=== PATIENT | female | born 1985 | race Asian ===

== ENCOUNTER 2016-07-03 22:12 | Inpatient (IN) | payer BC ==
[2016-07-03] MEDS ORDERED: Lidocaine 1% 50 ML MDV INJECT ONE (23:00)
[2016-07-03] MEDS ORDERED: Nalbuphine 20 MG/1 ML Amp IVPUSH PRN (23:00)
[2016-07-03] MEDS ORDERED: Oxytocin/Lactated Ringers 10 UNIT/1,000 ML BAG IV SCH (23:00)
[2016-07-03] MEDS ORDERED: Sodium Chloride 0.9% 10 ML Syringe FLUSH PRN (23:00)
[2016-07-03] MEDS: Lactated Ringers 1,000 ML IV SCH (23:44)
[2016-07-03] MEDS: Penicillin G Potassium 5 MILLUNITS in Sodium Chloride 0.9% 100 ML IV SCH (23:47)
[2016-07-04] MEDS: Penicillin G Potassium 2.5 MILLUNITS in Sodium Chloride 0.9% 100 ML IV SCH ×4 (02:26→12:02)
[2016-07-04] MEDS ORDERED: diphenhydrAMINE 50 MG/ML SDV IVPUSH PRN (04:08)
[2016-07-04] MEDS ORDERED: ePHEDrine 50 MG/ML SDV IVPUSH PRN (04:08)
[2016-07-04] MEDS ORDERED: fentaNYL 100 MCG/2 ML SDV EPIDUR PRN (04:08)
[2016-07-04] MEDS ORDERED: Ondansetron 4 MG/2 ML SDV IVPUSH PRN (04:08)
--- NOTE | 2016-07-04 04:12 | PCM.PREANE ---
Preanesthetic Assessment - Anesthesia/Transfusion/Family Hx Anesthesia History: No Prior Anesthesia Type of Anesthesia Reaction: Unknown Family History of Anesthesia Reaction: No Transfusion History: No Prior Transfusion(s) Intubation History: Unknown - Review of Systems General: No Symptoms Pulmonary: No Symptoms Cardiovascular: No Symptoms Gastrointestinal: No symptoms Neurological: No Symptoms Other: Reports: None - Physical Assessment O2 Sat by Pulse Oximetry: 98 Respiratory Rate: 16 Vital Signs: Last Vital Signs Temp 36.8 C 07/03/16 23:00 Pulse 81 07/03/16 23:00 Resp 16 07/03/16 23:00 BP 110/73 07/03/16 23:00 Pulse Ox 98 07/03/16 23:00 Height: 1.5 m Weight: 60.016 kg ASA Class: 2 Mental Status: Alert & Oriented x3 Dentition: Reports: Normal Dentition Thyro-Mental Finger Breadths: 3 Mouth Opening Finger Breadths: 3 ROM/Head Extension: Full Lungs: Clear to auscultation, Normal respiratory effort Cardiovascular: Regular Rate, Regular Rhythm - Lab Values: Laboratory Last Values WBC 12.24 K/mm3 (3.98-10.04) H 07/03/16 23:15 RBC 3.97 M/mm3 (3.98-5.22) L 07/03/16 23:15 Hgb 11.5 gm/L (11.2-15.7) 07/03/16 23:15 Hct 35.0 % (34.1-44.9) 07/03/16 23:15 MCV 88.2 fl (79.4-94.8) 07/03/16 23:15 MCH 29.0 pg (25.6-32.2) 07/03/16 23:15 MCHC 32.9 g/dl (32.2-35.5) 07/03/16 23:15 RDW Std Deviation 44.5 fL (36.4-46.3) 07/03/16 23:15 Plt Count 219 K/mm3 (182-369) 07/03/16 23:15 MPV 10.0 fl (9.4-12.3) 07/03/16 23:15 Blood Type O POSITIVE 07/03/16 23:15 Gel Antibody Screen Negative 07/03/16 23:15 - Allergies Allergies/Adverse Reactions: Allergies Allergy/AdvReac Type Severity Reaction Status Date / Time No Known Allergies Allergy Verified 07/03/16 23:00 - Blood Blood Available: No Product(s) Available: None - Acknowledgements Anesthesia Type Planned: Epidural Pt an Appropriate Candidate for the Planned Anesthesia: Yes Alternatives and Risks of Anesthesia Discussed w Pt/Guardian: Yes Pt/Guardian Understands and Agrees with Anesthesia Plan: Yes 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 pt neg for Zika - SUBSTANCE USE Smoking Status *Q: Never Smoker Tobacco Use Within Last Twelve Months: No Second Hand Smoke Exposure: No Recreational Drug Use History: No - HOME MEDS Home Medications: Home Meds PNV95/Ferrous Fumarate/FA [ Tablet] 1 each PO DAILY 07/04/16 [History] - CURRENT (IN HOUSE) MEDS Current Meds: Current Medications Lactated Ringer's (Ringers, Lactated) 1,000 mls @ 100 mls/hr IV ASDIRECTED [facility]EL Last Infusion: 07/04/16 02:10 Dose: 25 mls/hr Oxytocin/Lactated Ringer's (Pitocin In Lr 10 Units/1,000 Ml) 10 unit in 1,000 mls @ 500 mls/hr IV TITRATE [facility] PRN Reason: Protocol Penicillin G Potassium 5 (millunits/ Sodium Chloride) 100 mls @ 55 mls/hr IV ONETIME [facility] Last Admin: 07/03/16 23:47 Dose: 55 mls/hr Penicillin G Potassium 2.5 (millunits/ Sodium Chloride) 100 mls @ 55 mls/hr IV Q4H [facility] Last Admin: 07/04/16 03:31 Dose: 55 mls/hr Nalbuphine HCl (Nubain) 10 mg IVPUSH Q2H PRN PRN Reason: Pain (moderate 4-6) Sodium Chloride (Saline Flush) 10 ml FLUSH ASDIRECTED PRN PRN Reason: Keep Vein Open Discontinued Medications Lidocaine HCl (Xylocaine 1%) 50 ml INJECT ONETIME ONE Stop: 07/03/16 23:01
[2016-07-04] MEDS: Bupivacaine/fentaNYL/NS 100 ML Bag EPIDUR SCH ×2 (04:45→12:21)
[2016-07-04] MEDS: Lactated Ringers 1,000 ML IV SCH ×2 (04:52→08:02)
--- NOTE | 2016-07-04 08:08 | PCM.LDHP ---
L&D History of Present Illness - General Date of Service: 07/04/16 Admit Problem/Dx: Patient Status Order with Admit Dx/Problem 07/03/16 23:01 Patient Status [ADT] Routine Admission Diagnosis/Problem Admission Diagnosis/Problem Source of Information: Patient History Limitations: Reports: No limitations - History of Present Illness Introduction:: 31 y/o BRIAN 06/30/16 EGA 40w4d presented to L&D with contractions last evening at 40w3d. GBS positive. Cervix now 4 cm/100%/soft/mid position, Vtx-1 Cat I FHR amniotomy performed and meconium stained amniotic fluid. 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 pt neg for Zika Social & Family History - Tobacco Use Smoking Status *Q: Never Smoker Second Hand Smoke Exposure: No - Caffeine Use Caffeine Use: Reports: Soda - Recreational Drug Use Recreational Drug Use: No H&P Review of Systems - Review of Systems: Review Of Systems: See Below General: Reports: no symptoms HEENT: Reports: no symptoms Pulmonary: Reports: No Symptoms Cardiovascular: Reports: no symptoms Gastrointestinal: Reports: No symptoms Genitourinary: Reports: no symptoms Musculoskeletal: Reports: no symptoms Skin: Reports: no symptoms Psychiatric: Reports: no symptoms Neurological: Reports: No Symptoms Hematologic/Lymphatic: Reports: no symptoms Immunologic: Reports: no symptoms L&D Exam - Exam Exam: See Below - Vital Signs Vital Signs: Last Vital Signs Temp 98.2 F 07/03/16 23:00 Pulse 81 07/03/16 23:00 Resp 16 07/04/16 04:12 BP 110/73 07/03/16 23:00 Pulse Ox 98 07/04/16 04:12 Weight: 132 lb 5 oz - OB Specific Fundal Height in cm: 36 Contraction Duration (sec): 60 Contraction Frequency (min): 5 Contraction Intensity: Moderate movement: active heart tones: present heart tones per min: 135 Heart Rate (FHR) Variability: Moderate (6-25 bmp) Presentation: Vertex - Murray Score Murray Score Cervix Position: Midposition Murray Score Consistency: Soft Murray Score Effacement: >80% Murray Score Dilation: 3-4 cm Murray Score 's Station: -1 ,0 Murray Score Total: 10 - Exam General: alert, oriented HEENT: Mucosa moist & pink Neck: supple, trachea midline Lungs: Clear to auscultation, Normal respiratory effort Cardiovascular: regular rate, regular rhythm Abdomen: normal bowel sounds, soft Genitourinary: Normal external exam Extremities: normal inspection Skin: warm, dry, intact Psychiatric: alert, normal affect, normal mood - Patient Data Lab Results last 24 hrs: Laboratory Results - last 24 hr 07/03/16 07/03/16 Range/Units 23:15 23:15 WBC 12.24 H (3.98-10.04) K/mm3 RBC 3.97 L (3.98-5.22) M/mm3 Hgb 11.5 (11.2-15.7) gm/L Hct 35.0 (34.1-44.9) % MCV 88.2 (79.4-94.8) fl MCH 29.0 (25.6-32.2) pg MCHC 32.9 (32.2-35.5) g/dl RDW Std Deviation 44.5 (36.4-46.3) fL Plt Count 219 (182-369) K/mm3 MPV 10.0 (9.4-12.3) fl Blood Type O POSITIVE Gel Antibody Screen Negative Result Diagrams: 07/03/16 23:15 - Problem List (1) 40 weeks gestation of SNOMED Code(s): 46543148 ICD Code: Z3A.40 - 40 WEEKS GESTATION OF Status: Acute Current Visit: Yes (2) GBS carrier SNOMED Code(s): 0356078942002 ICD Code: Z22.330 - CARRIER OF GROUP B STREPTOCOCCUS Status: Acute Current Visit: Yes Problem List Initiated/Reviewed/Updated: No Orders Last 24hrs: Active Orders 24 hr Category Date Time Status Patient Status [ADT] Routine ADT 07/03/16 23:01 Active Activity as Tolerated [RC] PFP Care 07/03/16 23:00 Active Communication Order [RC] ASDIRECTED Care 07/03/16 23:00 Active Notify Provider [RC] PFP Care 07/03/16 23:00 Active Notify Provider [RC] PRN Care 07/03/16 23:00 Active Peripheral IV Care [RC] . DIRECTED Care 07/03/16 23:02 Active Vital Signs [RC] PER UNIT ROUTINE Care 07/03/16 23:00 Active Bupivacaine/fentaNYL/NS [fentaNYL/Bupivacaine/NS 2 MCG- Med 07/04/16 04:15 Active 0.125% 100 ML] 100 ml EPIDUR ASDIRECTED Lactated Ringers [Ringers, Lactated] 1,000 ml Med 07/03/16 23:00 Active IV ASDIRECTED Nalbuphine [Nubain] Med 07/03/16 23:00 Active 10 mg IVPUSH Q2H PRN Ondansetron [Zofran] Med 07/04/16 04:08 Active 4 mg IVPUSH ONETIME PRN Oxytocin/Lactated Ringers [Pitocin in LR 10 Units/1,000 Med 07/03/16 23:00 Active ML] 10 unit in 1,000 ml IV TITRATE Penicillin G Potassium [Pfizerpen] 2.5 millunits Med 07/03/16 23:00 Active Sodium Chloride 0.9% [Normal Saline] 100 ml IV Q4H Penicillin G Potassium [Pfizerpen] 5 millunits Med 07/03/16 23:00 Active Sodium Chloride 0.9% [Normal Saline] 100 ml IV ONETIME Sodium Chloride 0.9% [Saline Flush] Med 07/03/16 23:00 Active 10 ml FLUSH ASDIRECTED PRN diphenhydrAMINE [Benadryl] Med 07/04/16 04:08 Active 25 mg IVPUSH Q6H PRN ePHEDrine [ePHEDrine Sulfate] Med 07/04/16 04:08 Active 5 mg IVPUSH ASDIRECTED PRN fentaNYL [Sublimaze] Med 07/04/16 04:08 Active 100 mcg EPIDUR Q3H PRN Electronic Heart Tones Ext w TOCO [WOMSER] Oth 07/03/16 23:00 Ordered Routine Electronic Heart Tones Internal [WOMSER] Per Unit Ot 07/03/16 23:00 Ordered Routine Peripheral IV Insertion Adult [OM.PC] Routine Oth 07/03/16 23:00 Ordered Resuscitation Status Routine Resus Stat 07/03/16 23:00 Ordered Medication Orders Diphenhydramine HCl (Benadryl) 25 mg IVPUSH Q6H PRN PRN Reason: Pruritis Ephedrine Sulfate (Ephedrine Sulfate) 5 mg IVPUSH ASDIRECTED PRN PRN Reason: Hypotension Fentanyl (Sublimaze) 100 mcg EPIDUR Q3H PRN PRN Reason: Pain Last Admin: 07/04/16 04:44 Dose: 100 mcg Fentanyl/Bupivacaine HCl (Fentanyl/Bupivacaine/Ns 2 Mcg-0.125% 100 Ml) 100 ml EPIDUR ASDIRECTED [facility] Last Admin: 07/04/16 04:45 Dose: 100 ml Lactated Ringer's (Ringers, Lactated) 1,000 mls @ 100 mls/hr IV ASDIRECTED [facility] Last Admin: 07/04/16 04:52 Dose: 25 mls/hr Infusion: 07/04/16 04:52 Dose: 25 mls/hr Infusion: 07/04/16 02:10 Dose: 25 mls/hr Admin: 07/03/16 23:44 Dose: 100 mls/hr Oxytocin/Lactated Ringer's (Pitocin In Lr 10 Units/1,000 Ml) 10 unit in 1,000 mls @ 500 mls/hr IV TITRATE [facility] PRN Reason: Protocol Penicillin G Potassium 5 (millunits/ Sodium Chloride) 100 mls @ 55 mls/hr IV ONETIME [facility] Last Admin: 07/03/16 23:47 Dose: 55 mls/hr Penicillin G Potassium 2.5 (millunits/ Sodium Chloride) 100 mls @ 55 mls/hr IV Q4H [facility] Last Admin: 07/04/16 07:57 Dose: 55 mls/hr Infusion: 07/04/16 05:21 Dose: 55 mls/hr Admin: 07/04/16 03:31 Dose: 55 mls/hr Admin: 07/04/16 02:26 Dose: Nalbuphine HCl (Nubain) 10 mg IVPUSH Q2H PRN PRN Reason: Pain (moderate 4-6) Ondansetron HCl (Zofran) 4 mg IVPUSH ONETIME PRN PRN Reason: Nausea/Vomiting Sodium Chloride (Saline Flush) 10 ml FLUSH ASDIRECTED PRN PRN Reason: Keep Vein Open Assessment/Plan Comment:: Plan labor and delivery
--- NOTE | 2016-07-04 09:49 | PCM.SN ---
- Free Text/Narrative Note: Cervix remains 4 cm, 100%, mid position, soft, vtx now at zero station, Meconium stained amniotic fluid. Begin Augmentation with pitocin.
[2016-07-04] MEDS ORDERED: Oxytocin/Lactated Ringers 10 UNIT/1,000 ML BAG IV SCH (10:00)
[2016-07-04] MEDS: Penicillin G Potassium 5 MILLUNITS in Sodium Chloride 0.9% 100 ML IV SCH (15:53)
--- NOTE | 2016-07-04 17:53 | PCM.DEL ---
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)) Delivery Method: Spontaneous Vaginal Delivery Infant Delivery Mode: Spontaneous Presentation: Right Occiput Anterior (FRANK) Nuchal cord: none Prep: povidone-iodine (betadine Anesthesia Type: Epidural Laceration: 3rd degree (repaired vicryl ) Suture type: vicryl Suture size: 3-0 Placenta: intact (1724 intact eccentric cord insertion discarded), spontaneous Cord: 3 vessels Estimated blood loss: 500 Resuscitation needed: No : suctioned, bulb syringe, stimulated, warmed, blanket used, warmer used Provider: Trenton Betts Score 1 min: 9 Score 5 min: 9 - Patient Data Vitals - most recent: Last Vital Signs Temp 98.2 F 07/03/16 23:00 Pulse 81 07/03/16 23:00 Resp 16 07/04/16 04:12 BP 110/73 07/03/16 23:00 Pulse Ox 98 07/04/16 04:12 Weight - most recent: 132 lb 5 oz Lab Results last 24 hrs: Laboratory Results - last 24 hr 07/03/16 07/03/16 Range/Units 23:15 23:15 WBC 12.24 H (3.98-10.04) K/mm3 RBC 3.97 L (3.98-5.22) M/mm3 Hgb 11.5 (11.2-15.7) gm/L Hct 35.0 (34.1-44.9) % MCV 88.2 (79.4-94.8) fl MCH 29.0 (25.6-32.2) pg MCHC 32.9 (32.2-35.5) g/dl RDW Std Deviation 44.5 (36.4-46.3) fL Plt Count 219 (182-369) K/mm3 MPV 10.0 (9.4-12.3) fl Blood Type O POSITIVE Gel Antibody Screen Negative Med Orders - Current: Current Medications Diphenhydramine HCl (Benadryl) 25 mg IVPUSH Q6H PRN PRN Reason: Pruritis Ephedrine Sulfate (Ephedrine Sulfate) 5 mg IVPUSH ASDIRECTED PRN PRN Reason: Hypotension Fentanyl (Sublimaze) 100 mcg EPIDUR Q3H PRN PRN Reason: Pain Last Admin: 07/04/16 04:44 Dose: 100 mcg Fentanyl/Bupivacaine HCl (Fentanyl/Bupivacaine/Ns 2 Mcg-0.125% 100 Ml) 100 ml EPIDUR ASDIRECTED [facility] Last Admin: 07/04/16 12:21 Dose: 100 ml Lactated Ringer's (Ringers, Lactated) 1,000 mls @ 100 mls/hr IV ASDIRECTED [facility] Last Admin: 07/04/16 08:02 Dose: 25 mls/hr Oxytocin/Lactated Ringer's (Pitocin In Lr 10 Units/1,000 Ml) 10 unit in 1,000 mls @ 500 mls/hr IV TITRATE [facility] PRN Reason: Protocol Penicillin G Potassium 5 (millunits/ Sodium Chloride) 100 mls @ 55 mls/hr IV ONETIME [facility] Last Admin: 07/04/16 15:53 Dose: 55 mls/hr Penicillin G Potassium 2.5 (millunits/ Sodium Chloride) 100 mls @ 55 mls/hr IV Q4H [facility] Last Admin: 07/04/16 12:02 Dose: 55 mls/hr Oxytocin/Lactated Ringer's (Pitocin In Lr 10 Units/1,000 Ml) 10 unit in 1,000 mls @ 12 mls/hr IV TITRATE [facility]EL; 2 MUNITS/MIN PRN Reason: Protocol Last Titration: 07/04/16 16:03 Dose: 4 munits/min, 24 mls/hr Nalbuphine HCl (Nubain) 10 mg IVPUSH Q2H PRN PRN Reason: Pain (moderate 4-6) Ondansetron HCl (Zofran) 4 mg IVPUSH ONETIME PRN PRN Reason: Nausea/Vomiting Prenat Multivit/[place]/Iron/Folic Ac ( Plus Iron) 1 each PO DAILY [facility] Sodium Chloride (Saline Flush) 10 ml FLUSH ASDIRECTED PRN PRN Reason: Keep Vein Open Discontinued Medications Lidocaine HCl (Xylocaine 1%) 50 ml INJECT ONETIME ONE Stop: 07/03/16 23:01 - Problem List & Annotations (1) 40 weeks gestation of SNOMED Code(s): 99112350 Code(s): Z3A.40 - 40 WEEKS GESTATION OF Status: Acute Current Visit: Yes (2) GBS carrier SNOMED Code(s): 2199867779968 Code(s): Z22.330 - CARRIER OF GROUP B STREPTOCOCCUS Status: Acute Current Visit: Yes (3) Third degree perineal laceration during delivery SNOMED Code(s): 76972160, 580523069 Code(s): O70.20 - THIRD DEGREE PERINEAL LACERATION DURING DELIVERY, UNSP Status: Acute Current Visit: Yes Qualifiers: Third degree perineal laceration subtype: type IIIc Qualified Code(s): O70.23 - Third degree perineal laceration during delivery, IIIc (4) Meconium stained amniotic fluid, delivered, current hospitalization SNOMED Code(s): 707105814 Code(s): O77.0 - LABOR AND DELIVERY COMPLICATED BY MECONIUM IN AMNIOTIC FLUID Status: Acute Current Visit: Yes - Problem List Review Problem List Initiated/Reviewed/Updated: No - My Orders Last 24 Hours: My Active Orders 07/03/16 23:00 Activity as Tolerated [RC] PFP Communication Order [RC] ASDIRECTED Notify Provider [RC] PFP Notify Provider [RC] PRN Vital Signs [RC] PER UNIT ROUTINE Lactated Ringers [Ringers, Lactated] 1,000 ml IV ASDIRECTED Nalbuphine [Nubain] 10 mg IVPUSH Q2H PRN Oxytocin/Lactated Ringers [Pitocin in LR 10 Units/1,000 ML] 10 unit in 1,000 ml IV TITRATE Penicillin G Potassium [Pfizerpen] 2.5 millunits Sodium Chloride 0.9% [Normal Saline] 100 ml IV Q4H Penicillin G Potassium [Pfizerpen] 5 millunits Sodium Chloride 0.9% [Normal Saline] 100 ml IV ONETIME Sodium Chloride 0.9% [Saline Flush] 10 ml FLUSH ASDIRECTED PRN Electronic Heart Tones Ext w TOCO [WOMSER] Routine Electronic Heart Tones Internal [WOMSER] Per Unit Routine Peripheral IV Insertion Adult [OM.PC] Routine Resuscitation Status Routine 07/03/16 23:01 Patient Status [ADT] Routine 07/03/16 23:02 Peripheral IV Care [RC] . DIRECTED 07/04/16 10:00 Oxytocin/Lactated Ringers [Pitocin in LR 10 Units/1,000 ML] 10 unit in 1,000 ml IV TITRATE 07/05/16 09:00 Vit with Ca/FA/Iron [ Plus Iron] 1 each PO DAILY - Plan Plan:: Plan labor and delivery
[2016-07-04] MEDS ORDERED: Acetaminophen 325 MG Tab PO PRN (18:09)
[2016-07-04] MEDS ORDERED: Simethicone 80 MG Tab.Chew PO PRN (18:09)
[2016-07-04] MEDS ORDERED: Bupivacaine 0.25% 10 ML SDV ONE (18:09)
[2016-07-04] MEDS ORDERED: Lanolin 100% Cream 7 GM Tube TOP PRN (18:09)
[2016-07-04] MEDS: Ibuprofen 600 MG Tab PO PRN (18:17)
[2016-07-04] MEDS: Docusate Sodium 100 MG Cap PO PRN (18:17)
[2016-07-04] MEDS: Benzocaine/Menthol 20%-0.5% Spray 56 GM Canister TOP PRN (18:55)
[2016-07-04] MEDS: Witch Hazel Medicated Pads 100/Jar TOP PRN (18:56)
[2016-07-05] MEDS: Ibuprofen 600 MG Tab PO PRN ×6 (01:01→22:41)
[2016-07-05] MEDS: Penicillin G Potassium 2.5 MILLUNITS in Sodium Chloride 0.9% 100 ML IV SCH (01:05)
--- NOTE | 2016-07-05 06:15 | PCM48HPAN ---
Post Anesthesia Note - EVALUATION WITHIN 48HRS OF ANESTHETIC Vital Signs in Normal Range: Yes Patient Participated in Evaluation: Yes Respiratory Function Stable: Yes Airway Patent: Yes Cardiovascular Function Stable: Yes Hydration Status Stable: Yes Pain Control Satisfactory: Yes Nausea and Vomiting Control Satisfactory: Yes Mental Status Recovered: Yes
[2016-07-05] MEDS: Docusate Sodium 100 MG Cap PO PRN ×2 (08:57→20:37)
[2016-07-05] MEDS ORDERED: Prenatal Multivitamin with Calcium/Folic Acid/Iron Tab PO SCH (09:00)
--- NOTE | 2016-07-05 10:03 | PCM.SN ---
- Free Text/Narrative Note: PPD#1 Afebrile, no heavy vaginal bleeding, uterus involuting normally, no leg cramps. No Bowel movement as yet
[2016-07-05] MEDS: Acetaminophen/oxyCODONE 325-5 MG Tab PO PRN (20:36)
[2016-07-06 04:54] VITALS: BP 105/70
[2016-07-06] MEDS: Acetaminophen/oxyCODONE 325-5 MG Tab PO PRN (06:19)
--- NOTE | 2016-07-06 08:05 | PCM.DCSUM1 ---
Discharge Summary - Hospital Course Free Text/Narrative:: [facility] LIVE L/D Delivery Note Patient Name: ARCHANA BELTRAN Date of : 83 Patient Status: Observation Attending Provider: Trenton Betts Date: 07/04/16 17:47 Initialization Date: 07/04/16 17:47 L & D Note - General Info Date of Service: 07/04/16 Mother's Due Date: 06/30/16 - Delivery Note Labor: spontaneous, augmented by oxytocin Cervical Ripening Method: Oxytocin Delivery Outcome: Livebirth (Female 1722 FRANK liveborn APGARs 9/9 weight 3010 gms /6#10.2 oz Meconium Stained Amniotic Fluid Dr Dobbins present at delivery ( Stove Installer)) Delivery Method: Spontaneous Vaginal Delivery Delivery Mode: Spontaneous Presentation: Right Occiput Anterior (FRANK) Nuchal cord: none Prep: povidone-iodine (betadine Anesthesia Type: Epidural Laceration: 3rd degree (repaired vicryl ) Suture type: vicryl Suture size: 3-0 Placenta: intact (1724 intact eccentric cord insertion discarded), spontaneous Cord: 3 vessels Estimated blood loss: 500 Resuscitation needed: No : suctioned, bulb syringe, stimulated, warmed, blanket used, warmer used Provider: Trenton Betts Score 1 min: 9 Score 5 min: 9 - Patient Data Vitals - most recent: Last Vital Signs Temp 98.2 F 07/03/16 23:00 Pulse 81 07/03/16 23:00 Resp 16 07/04/16 04:12 BP 110/73 07/03/16 23:00 Pulse Ox 98 07/04/16 04:12 Weight - most recent: 132 lb 5 oz Lab Results last 24 hrs: Laboratory Results - last 24 hr 07/03/16 07/03/16 Range/Units 23:15 23:15 WBC 12.24 H (3.98-10.04) K/mm3 RBC 3.97 L (3.98-5.22) M/mm3 Hgb 11.5 (11.2-15.7) gm/L Hct 35.0 (34.1-44.9) % MCV 88.2 (79.4-94.8) fl MCH 29.0 (25.6-32.2) pg MCHC 32.9 (32.2-35.5) g/dl RDW Std Deviation 44.5 (36.4-46.3) fL Plt Count 219 (182-369) K/mm3 MPV 10.0 (9.4-12.3) fl Blood Type O POSITIVE Gel Antibody Screen Negative Med Orders - Current: Current Medications Diphenhydramine HCl (Benadryl) 25 mg IVPUSH Q6H PRN PRN Reason: Pruritis Ephedrine Sulfate (Ephedrine Sulfate) 5 mg IVPUSH ASDIRECTED PRN PRN Reason: Hypotension Fentanyl (Sublimaze) 100 mcg EPIDUR Q3H PRN PRN Reason: Pain Last Admin: 07/04/16 04:44 Dose: 100 mcg Fentanyl/Bupivacaine HCl (Fentanyl/Bupivacaine/Ns 2 Mcg-0.125% 100 Ml) 100 ml EPIDUR ASDIRECTED N[place]EL Last Admin: 07/04/16 12:21 Dose: 100 ml Lactated Ringer's (Ringers, Lactated) 1,000 mls @ 100 mls/hr IV ASDIRECTED NATANAEL Last Admin: 07/04/16 08:02 Dose: 25 mls/hr Oxytocin/Lactated Ringer's (Pitocin In Lr 10 Units/1,000 Ml) 10 unit in 1,000 mls @ 500 mls/hr IV TITRATE NATANAEL PRN Reason: Protocol Penicillin G Potassium 5 (millunits/ Sodium Chloride) 100 mls @ 55 mls/hr IV ONETIME NATANAEL Last Admin: 07/04/16 15:53 Dose: 55 mls/hr Penicillin G Potassium 2.5 (millunits/ Sodium Chloride) 100 mls @ 55 mls/hr IV Q4H NATANAEL Last Admin: 07/04/16 12:02 Dose: 55 mls/hr Oxytocin/Lactated Ringer's (Pitocin In Lr 10 Units/1,000 Ml) 10 unit in 1,000 mls @ 12 mls/hr IV TITRATE NATANAEL; 2 MUNITS/MIN PRN Reason: Protocol Last Titration: 07/04/16 16:03 Dose: 4 munits/min, 24 mls/hr Nalbuphine HCl (Nubain) 10 mg IVPUSH Q2H PRN PRN Reason: Pain (moderate 4-6) Ondansetron HCl (Zofran) 4 mg IVPUSH ONETIME PRN PRN Reason: Nausea/Vomiting Prenat Multivit/Brand Representative/Iron/Folic Ac ( Plus Iron) 1 each PO DAILY N[place]NAEL Sodium Chloride (Saline Flush) 10 ml FLUSH ASDIRECTED PRN PRN Reason: Keep Vein Open Discontinued Medications Lidocaine HCl (Xylocaine 1%) 50 ml INJECT ONETIME ONE Stop: 07/03/16 23:01 - Problem List & Annotations (1) 40 weeks gestation of SNOMED Code(s): 45004358 Code(s): Z3A.40 - 40 WEEKS GESTATION OF Status: Acute Current Visit: Yes (2) GBS carrier SNOMED Code(s): 6537704472655 Code(s): Z22.330 - CARRIER OF GROUP B STREPTOCOCCUS Status: Acute Current Visit: Yes (3) Third degree perineal laceration during delivery SNOMED Code(s): 04815665, 106379510 Code(s): O70.20 - THIRD DEGREE PERINEAL LACERATION DURING DELIVERY, UNSP Status: Acute Current Visit: Yes Qualifiers: Third degree perineal laceration subtype: type IIIc Qualified Code(s): O70.23 - Third degree perineal laceration during delivery, IIIc (4) Meconium stained amniotic fluid, delivered, current hospitalization SNOMED Code(s): 716338835 Code(s): O77.0 - LABOR AND DELIVERY COMPLICATED BY MECONIUM IN AMNIOTIC FLUID Status: Acute Current Visit: Yes - Problem List Review Problem List Initiated/Reviewed/Updated: No - My Orders Last 24 Hours: My Active Orders 07/03/16 23:00 Activity as Tolerated [RC] PFP Communication Order [RC] ASDIRECTED Notify Provider [RC] PFP Notify Provider [RC] PRN Vital Signs [RC] PER UNIT ROUTINE Lactated Ringers [Ringers, Lactated] 1,000 ml IV ASDIRECTED Nalbuphine [Nubain] 10 mg IVPUSH Q2H PRN Oxytocin/Lactated Ringers [Pitocin in LR 10 Units/1,000 ML] 10 unit in 1,000 ml IV TITRATE Penicillin G Potassium [Pfizerpen] 2.5 millunits Sodium Chloride 0.9% [Normal Saline] 100 ml IV Q4H Penicillin G Potassium [Pfizerpen] 5 millunits Sodium Chloride 0.9% [Normal Saline] 100 ml IV ONETIME Sodium Chloride 0.9% [Saline Flush] 10 ml FLUSH ASDIRECTED PRN Electronic Heart Tones Ext w TOCO [WOMSER] Routine Electronic Heart Tones Internal [WOMSER] Per Unit Routine Peripheral IV Insertion Adult [OM.PC] Routine Resuscitation Status Routine 07/03/16 23:01 Patient Status [ADT] Routine 07/03/16 23:02 Peripheral IV Care [RC] . DIRECTED 07/04/16 10:00 Oxytocin/Lactated Ringers [Pitocin in LR 10 Units/1,000 ML] 10 unit in 1,000 ml IV TITRATE 07/05/16 09:00 Vit with Ca/FA/Iron [ Plus Iron] 1 each PO DAILY - Plan Plan:: Plan labor and delivery HPI Initial Comments: [facility] LIVE L/D Delivery Note Patient Name: ARCHANA BELTRAN Date of : 83 Patient Status: Observation Attending Provider: Trenton Betts Date: 07/04/16 17:47 Initialization Date: 07/04/16 17:47 L & D Note - General Info Date of Service: 07/04/16 Mother's Due Date: 06/30/16 - Delivery Note Labor: spontaneous, augmented by oxytocin Cervical Ripening Method: Oxytocin Delivery Outcome: Livebirth (Female 1722 FRANK liveborn APGARs 9/9 weight 3010 gms /6#10.2 oz Meconium Stained Amniotic Fluid Dr Dobbins present at delivery ( Stove Installer)) Infant Delivery Method: Spontaneous Vaginal Delivery Delivery Mode: Spontaneous Presentation: Right Occiput Anterior (FRANK) Nuchal cord: none Prep: povidone-iodine (betadine Anesthesia Type: Epidural Laceration: 3rd degree (repaired vicryl ) Suture type: vicryl Suture size: 3-0 Placenta: intact (1724 intact eccentric cord insertion discarded), spontaneous Cord: 3 vessels Estimated blood loss: 500 Resuscitation needed: No [place]: suctioned, bulb syringe, stimulated, warmed, blanket used, warmer used Provider: Trenton Betts Score 1 min: 9 Score 5 min: 9 - Patient Data Vitals - most recent: Last Vital Signs Temp 98.2 F 07/03/16 23:00 Pulse 81 07/03/16 23:00 Resp 16 07/04/16 04:12 BP 110/73 07/03/16 23:00 Pulse Ox 98 07/04/16 04:12 Weight - most recent: 132 lb 5 oz Lab Results last 24 hrs: Laboratory Results - last 24 hr 07/03/16 07/03/16 Range/Units 23:15 23:15 WBC 12.24 H (3.98-10.04) K/mm3 RBC 3.97 L (3.98-5.22) M/mm3 Hgb 11.5 (11.2-15.7) gm/L Hct 35.0 (34.1-44.9) % MCV 88.2 (79.4-94.8) fl MCH 29.0 (25.6-32.2) pg MCHC 32.9 (32.2-35.5) g/dl RDW Std Deviation 44.5 (36.4-46.3) fL Plt Count 219 (182-369) K/mm3 MPV 10.0 (9.4-12.3) fl Blood Type O POSITIVE Gel Antibody Screen Negative Med Orders - Current: Current Medications Diphenhydramine HCl (Benadryl) 25 mg IVPUSH Q6H PRN PRN Reason: Pruritis Ephedrine Sulfate (Ephedrine Sulfate) 5 mg IVPUSH ASDIRECTED PRN PRN Reason: Hypotension Fentanyl (Sublimaze) 100 mcg EPIDUR Q3H PRN PRN Reason: Pain Last Admin: 07/04/16 04:44 Dose: 100 mcg Fentanyl/Bupivacaine HCl (Fentanyl/Bupivacaine/Ns 2 Mcg-0.125% 100 Ml) 100 ml EPIDUR ASDIRECTED [facility] Last Admin: 07/04/16 12:21 Dose: 100 ml Lactated Ringer's (Ringers, Lactated) 1,000 mls @ 100 mls/hr IV ASDIRECTED [facility] Last Admin: 07/04/16 08:02 Dose: 25 mls/hr Oxytocin/Lactated Ringer's (Pitocin In Lr 10 Units/1,000 Ml) 10 unit in 1,000 mls @ 500 mls/hr IV TITRATE N[place]NAEL PRN Reason: Protocol Penicillin G Potassium 5 (millunits/ Sodium Chloride) 100 mls @ 55 mls/hr IV ONETIME NATANAEL Last Admin: 07/04/16 15:53 Dose: 55 mls/hr Penicillin G Potassium 2.5 (millunits/ Sodium Chloride) 100 mls @ 55 mls/hr IV Q4H NATANAEL Last Admin: 07/04/16 12:02 Dose: 55 mls/hr Oxytocin/Lactated Ringer's (Pitocin In Lr 10 Units/1,000 Ml) 10 unit in 1,000 mls @ 12 mls/hr IV TITRATE NATANAEL; 2 MUNITS/MIN PRN Reason: Protocol Last Titration: 07/04/16 16:03 Dose: 4 munits/min, 24 mls/hr Nalbuphine HCl (Nubain) 10 mg IVPUSH Q2H PRN PRN Reason: Pain (moderate 4-6) Ondansetron HCl (Zofran) 4 mg IVPUSH ONETIME PRN PRN Reason: Nausea/Vomiting Prenat Multivit/[place]/Iron/Folic Ac ( Plus Iron) 1 each PO DAILY N[place]NAEL Sodium Chloride (Saline Flush) 10 ml FLUSH ASDIRECTED PRN PRN Reason: Keep Vein Open Discontinued Medications Lidocaine HCl (Xylocaine 1%) 50 ml INJECT ONETIME ONE Stop: 07/03/16 23:01 - Problem List & Annotations (1) 40 weeks gestation of SNOMED Code(s): 81036452 Code(s): Z3A.40 - 40 WEEKS GESTATION OF Status: Acute Current Visit: Yes (2) GBS carrier SNOMED Code(s): 9582174113353 Code(s): Z22.330 - CARRIER OF GROUP B STREPTOCOCCUS Status: Acute Current Visit: Yes (3) Third degree perineal laceration during delivery SNOMED Code(s): 43466010, 187172430 Code(s): O70.20 - THIRD DEGREE PERINEAL LACERATION DURING DELIVERY, UNSP Status: Acute Current Visit: Yes Qualifiers: Third degree perineal laceration subtype: type IIIc Qualified Code(s): O70.23 - Third degree perineal laceration during delivery, IIIc (4) Meconium stained amniotic fluid, delivered, current hospitalization SNOMED Code(s): 430733761 Code(s): O77.0 - LABOR AND DELIVERY COMPLICATED BY MECONIUM IN AMNIOTIC FLUID Status: Acute Current Visit: Yes - Problem List Review Problem List Initiated/Reviewed/Updated: No - My Orders Last 24 Hours: My Active Orders 07/03/16 23:00 Activity as Tolerated [RC] PFP Communication Order [RC] ASDIRECTED Notify Provider [RC] PFP Notify Provider [RC] PRN Vital Signs [RC] PER UNIT ROUTINE Lactated Ringers [Ringers, Lactated] 1,000 ml IV ASDIRECTED Nalbuphine [Nubain] 10 mg IVPUSH Q2H PRN Oxytocin/Lactated Ringers [Pitocin in LR 10 Units/1,000 ML] 10 unit in 1,000 ml IV TITRATE Penicillin G Potassium [Pfizerpen] 2.5 millunits Sodium Chloride 0.9% [Normal Saline] 100 ml IV Q4H Penicillin G Potassium [Pfizerpen] 5 millunits Sodium Chloride 0.9% [Normal Saline] 100 ml IV ONETIME Sodium Chloride 0.9% [Saline Flush] 10 ml FLUSH ASDIRECTED PRN Electronic Heart Tones Ext w TOCO [WOMSER] Routine Electronic Heart Tones Internal [WOMSER] Per Unit Routine Peripheral IV Insertion Adult [OM.PC] Routine Resuscitation Status Routine 07/03/16 23:01 Patient Status [ADT] Routine 07/03/16 23:02 Peripheral IV Care [RC] . DIRECTED 07/04/16 10:00 Oxytocin/Lactated Ringers [Pitocin in LR 10 Units/1,000 ML] 10 unit in 1,000 ml IV TITRATE 07/05/16 09:00 Vit with Ca/FA/Iron [ Plus Iron] 1 each PO DAILY - Plan Plan:: Plan labor and delivery Brief History: [facility] LIVE . L/D Delivery Note. Patient Name: ARCHANA BELTRAN Record Number: [id number]. Date of : Patient Status: Observation. Attending Provider: Trenton Betts Number: [id number]. Date: 07/04/16 17:47Initialization Date: 07/04/16 17:47. L & D Note. - General Info. Date of Service: 07/04/16. Mother's Due Date: 06/30/16. - Delivery Note. Labor: spontaneous, augmented by oxytocin. Cervical Ripening Method: Oxytocin. Delivery Outcome: Livebirth (Female 1722 FRANK liveborn APGARs 9/9 weight 3010 gms/6#10.2 oz Meconium Stained Amniotic Fluid Dr Dobbins present at delivery (Stove Installer)). Delivery Method: Spontaneous Vaginal Delivery. Infant Delivery Mode: Spontaneous. Presentation: Right Occiput Anterior (FRANK). Nuchal cord: none. Prep: povidone- iodine (betadine. Anesthesia Type: Epidural. Laceration: 3rd degree (repaired vicryl ). Suture type: vicryl. Suture size: 3-0. Placenta: intact (1724 intact eccentric cord insertion discarded), spontaneous. Cord: 3 vessels. Estimated blood loss: 500. Resuscitation needed: No. : suctioned, bulb syringe, stimulated, warmed, blanket used, warmer used. Provider: Trenton Betts. Score 1 min: 9. Score 5 min: 9. - Patient Data. Vitals - most recent: Last Vital Signs. Temp 98.2 F 07/03/16 23:00. Pulse 81 07/03/16 23:00. Resp 16 07/04/16 04:12. BP 110/73 07/03/16 23:00. Pulse Ox 98 07/04/16 04:12. Weight - most recent: 132 lb 5 oz. Lab Results last 24 hrs: Laboratory Results - last 24 hr. 07/04/1703Range/Units. 23 :1523:15. WBC 12.24 H (3.98-10.04) K/mm3. RBC 3.97 L (3.98-5.22) M/mm3. Hgb 11.5 (11.2-15.7) gm/L. Hct 35.0 (34.1-44.9) %. MCV 88.2 (79.4-94.8) fl. MCH 29.0 (25.6-32.2) pg. MCHC 32.9 (32.2-35.5) g/dl. RDW Std Deviation 44.5 (36.4-46.3) fL. Plt Count 219 (182-369) K/mm3. MPV 10.0 (9.4-12.3) fl. Blood Type O POSITIVE. Gel Antibody Screen Negative. Med Orders - Current : Current Medications. Diphenhydramine HCl (Benadryl) 25 mg IVPUSH Q6H PRN. PRN Reason: Pruritis. Ephedrine Sulfate (Ephedrine Sulfate) 5 mg IVPUSH ASDIRECTED PRN. PRN Reason: Hypotension. Fentanyl (Sublimaze) 100 mcg EPIDUR Q3H PRN. PRN Reason: Pain. Last Admin: 07/04/16 04:44 Dose: 100 mcg. Fentanyl/Bupivacaine HCl (Fentanyl/Bupivacaine/Ns 2 Mcg-0.125% 100 Ml) 100 ml EPIDUR ASDIRECTED [place]. Last Admin: 07/04/16 12:21 Dose: 100 ml. Lactated Ringer's (Ringers, Lactated) 1,000 mls @ 100 mls/hr IV ASDIRECTED [place]. Last Admin: 07/04/16 08:02 Dose: 25 mls/hr. Oxytocin/Lactated Ringer's (Pitocin In Lr 10 Units/1,000 Ml) 10 unit in 1,000 mls @ 500 mls/hr IV TITRATE N[place]NAEL. PRN Reason: Protocol. Penicillin G Potassium 5 (millunits/ Sodium Chloride) 100 mls @ 55 mls/hr IV ONETIME NATANAEL. Last Admin: 07/04/16 15:53 Dose: 55 mls/hr. Penicillin G Potassium 2.5 (millunits/ Sodium Chloride) 100 mls @ 55 mls/hr IV Q4H N[place]NAEL. Last Admin: 07/04/16 12:02 Dose: 55 mls/hr. Oxytocin/Lactated Ringer 's (Pitocin In Lr 10 Units/1,000 Ml) 10 unit in 1,000 mls @ 12 mls/hr IV TITRATE N[place]NAEL; 2 MUNITS/MIN. PRN Reason: Protocol. Last Titration: 07/04/16 16: 03 Dose: 4 munits/min, 24 mls/hr. Nalbuphine HCl (Nubain) 10 mg IVPUSH Q2H PRN. PRN Reason: Pain (moderate 4-6). Ondansetron HCl (Zofran) 4 mg IVPUSH ONETIME PRN. PRN Reason: Nausea/Vomiting. Prenat Multivit/[place]/Iron/Folic Ac ( Plus Iron) 1 each PO DAILY NATANAEL. Sodium Chloride (Saline Flush) 10 ml FLUSH ASDIRECTED PRN. PRN Reason: Keep Vein Open. Discontinued Medications. Lidocaine HCl (Xylocaine 1%) 50 ml INJECT ONETIME ONE. Stop: 23:01. - Problem List & Annotations. (1) 40 weeks gestation of . SNOMED Code(s): 76384663. Code(s): Z3A.40 - 40 WEEKS GESTATION OF Status: Acute Current Visit: Yes. (2) GBS carrier. SNOMED Code(s ): 0523954974365. Code(s): Z22.330 - CARRIER OF GROUP B STREPTOCOCCUS Status : Acute Current Visit: Yes. (3) Third degree perineal laceration during delivery. SNOMED Code(s): 00414614, 499544588. Code(s): O70.20 - THIRD DEGREE PERINEAL LACERATION DURING DELIVERY, UNSP Status: Acute Current Visit: Yes. Qualifiers: Third degree perineal laceration subtype: type IIIc Qualified Code(s): O70.23 - Third degree perineal laceration during delivery, IIIc. (4) Meconium stained amniotic fluid, delivered, current hospitalization. SNOMED Code(s): 710739284. Code(s): O77.0 - LABOR AND DELIVERY COMPLICATED BY MECONIUM IN AMNIOTIC FLUID Status: Acute Current Visit: Yes. - Problem List Review. Problem List Initiated/Reviewed/Updated: No. - My Orders. Last 24 Hours: My Active Orders. 07/03/16 23:00. Activity as Tolerated [RC] PFP. Communication Order [RC] ASDIRECTED. Notify Provider [RC] PFP. Notify Provider [RC] PRN. Vital Signs [RC] PER UNIT ROUTINE. Lactated Ringers [ Ringers, Lactated] 1,000 ml IV ASDIRECTED. Nalbuphine [Nubain] 10 mg IVPUSH Q2H PRN. Oxytocin/Lactated Ringers [Pitocin in LR 10 Units/1,000 ML] 10 unit in 1,000 ml IV TITRATE. Penicillin G Potassium [Pfizerpen] 2.5 millunits Sodium Chloride 0.9% [Normal Saline] 100 ml IV Q4H. Penicillin G Potassium [ Pfizerpen] 5 millunits Sodium Chloride 0.9% [Normal Saline] 100 ml IV ONETIME. Sodium Chloride 0.9% [Saline Flush] 10 ml FLUSH ASDIRECTED PRN. Electronic Heart Tones Ext w TOCO [WOMSER] Routine. Electronic Heart Tones Internal [WOMSER] Per Unit Routine. Peripheral IV Insertion Adult [ OM.PC] Routine. Resuscitation Status Routine. 07/03/16 23:01. Patient Status [ADT] Routine. 07/03/16 23:02. Peripheral IV Care [RC] . DIRECTED. 10:00. Oxytocin/Lactated Ringers [Pitocin in LR 10 Units/1,000 ML] 10 unit in 1,000 ml IV TITRATE. 07/05/16 09:00. Vit with Ca/FA/Iron [ Plus Iron] 1 each PO DAILY. - Plan. Plan:: Plan labor and delivery - Discharge Data Discharge Date: 07/06/16 Discharge Disposition: Home, Self-Care 01 Condition: Good - Discharge Diagnosis/Problem(s) (1) 40 weeks gestation of SNOMED Code(s): 58566849 ICD Code: Z3A.40 - 40 WEEKS GESTATION OF Status: Acute Current Visit: Yes (2) GBS carrier SNOMED Code(s): 4646210072290 ICD Code: Z22.330 - CARRIER OF GROUP B STREPTOCOCCUS Status: Acute Current Visit: Yes (3) Third degree perineal laceration during delivery SNOMED Code(s): 02819700, 292772694 ICD Code: O70.20 - THIRD DEGREE PERINEAL LACERATION DURING DELIVERY, UNSP Status: Acute Current Visit: Yes Qualifiers: Third degree perineal laceration subtype: type IIIc Qualified Code(s): O70.23 - Third degree perineal laceration during delivery, IIIc (4) Meconium stained amniotic fluid, delivered, current hospitalization SNOMED Code(s): 812538569 ICD Code: O77.0 - LABOR AND DELIVERY COMPLICATED BY MECONIUM IN AMNIOTIC FLUID Status: Acute Current Visit: Yes - Patient Summary/Data Complications: none Consults: none Hospital Course: uneventful - Patient Instructions Diet: Heart Healthy Diet Activity: As Tolerated Driving: Do Not Drive (x48 hrs) Showering/Bathing: May Shower Notify Provider of: Fever, Increased Pain, Swelling and Redness, Drainage, Nausea and/or Vomiting - Discharge Plan Prescriptions/Med Rec: Acetaminophen/oxyCODONE [Percocet 325-5 MG] 1 tab PO Q6H PRN #25 tablet PRN Reason: Pain Ibuprofen [IJD: Ibuprofen] 600 mg PO Q6H PRN #50 tablet PRN Reason: Pain Home Medications: Home Meds PNV95/Ferrous Fumarate/FA [ Tablet] 1 each PO DAILY 07/04/16 [History] Acetaminophen [Tylenol] 650 mg PO Q6H PRN #0 tablet 07/06/16 [Rx] Acetaminophen/oxyCODONE [Percocet 325-5 MG] 1 tab PO Q6H PRN #25 tablet [Rx] Benzocaine/Menthol [[facility] [place]] 1 spray TOP ASDIRECTED PRN #1 canister 07/06/16 [Rx] Docusate Sodium [Colace] 100 mg PO BID PRN #0 cap 07/06/16 [Rx] Ibuprofen [IJD: Ibuprofen] 600 mg PO Q6H PRN #50 tablet 07/06/16 [Rx] Simethicone 80 mg PO Q4H PRN #0 tab.chew 07/06/16 [Rx] Jame Avelar [Tucks] 1 pad TOP ASDIRECTED PRN #0 pad 07/06/16 [Rx] Referrals: Kandace Dhillon MD [Physician] - - Discharge Summary/Plan Comment DC Time >30 min.: No - Patient Data Vitals - Most Recent: Last Vital Signs Temp 98.2 F 07/06/16 04:00 Pulse 68 07/06/16 04:02 Resp 15 07/06/16 04:00 BP 105/70 07/06/16 04:02 Pulse Ox 96 07/06/16 04:02 Weight - Most Recent: 132 lb 5 oz Med Orders - Current: Current Medications Acetaminophen (Tylenol) 650 mg PO Q4H PRN PRN Reason: mild pain or fever Benzocaine/Menthol ([facility] [place]) 0 gm TOP ASDIRECTED PRN PRN Reason: Perineal Comfort Measure Last Admin: 07/04/16 18:55 Dose: 1 can Docusate Sodium (Colace) 100 mg PO BID PRN PRN Reason: Constipation Last Admin: 07/05/16 20:37 Dose: 100 mg Emollient Ointment (Lansinoh Hpa) 0 gm TOP ASDIRECTED PRN PRN Reason: Sore Nipples Ibuprofen (Motrin) 600 mg PO Q4H PRN PRN Reason: Mild pain or fever Last Admin: 07/05/16 22:41 Dose: 600 mg Oxycodone/Acetaminophen (Percocet 325-5 Mg) 1 tab PO Q4H PRN PRN Reason: Pain (moderate 4-6) Last Admin: 07/06/16 06:19 Dose: 1 tab Simethicone (Simethicone) 80 mg PO Q4H PRN PRN Reason: Gas Witch Rosio (Tucks) 1 pad TOP ASDIRECTED PRN PRN Reason: Hemorrhoid pain Last Admin: 07/04/16 18:56 Dose: 1 jar Discontinued Medications Diphenhydramine HCl (Benadryl) 25 mg IVPUSH Q6H PRN PRN Reason: Pruritis Ephedrine Sulfate (Ephedrine Sulfate) 5 mg IVPUSH ASDIRECTED PRN PRN Reason: Hypotension Fentanyl (Sublimaze) 100 mcg EPIDUR Q3H PRN PRN Reason: Pain Last Admin: 07/04/16 04:44 Dose: 100 mcg Fentanyl/Bupivacaine HCl (Fentanyl/Bupivacaine/Ns 2 Mcg-0.125% 100 Ml) 100 ml EPIDUR ASDIRECTED [place] Last Admin: 07/04/16 12:21 Dose: 100 ml Lactated Ringer's (Ringers, Lactated) 1,000 mls @ 100 mls/hr IV ASDIRECTED [facility] Last Admin: 07/04/16 08:02 Dose: 25 mls/hr Oxytocin/Lactated Ringer's (Pitocin In Lr 10 Units/1,000 Ml) 10 unit in 1,000 mls @ 500 mls/hr IV TITRATE [place] PRN Reason: Protocol Penicillin G Potassium 5 (millunits/ Sodium Chloride) 100 mls @ 55 mls/hr IV ONETIME N[place]NAEL Last Admin: 07/04/16 15:53 Dose: 55 mls/hr Penicillin G Potassium 2.5 (millunits/ Sodium Chloride) 100 mls @ 55 mls/hr IV Q4H N[place]EL Last Admin: 07/05/16 01:05 Dose: Not Given Oxytocin/Lactated Ringer's (Pitocin In Lr 10 Units/1,000 Ml) 10 unit in 1,000 mls @ 12 mls/hr IV TITRATE N[place]EL; 2 MUNITS/MIN PRN Reason: Protocol Last Titration: 07/04/16 16:03 Dose: 4 munits/min, 24 mls/hr Lidocaine HCl (Xylocaine 1%) 50 ml INJECT ONETIME ONE Stop: 07/03/16 23:01 Last Admin: 07/05/16 16:52 Dose: Not Given Nalbuphine HCl (Nubain) 10 mg IVPUSH Q2H PRN PRN Reason: Pain (moderate 4-6) Ondansetron HCl (Zofran) 4 mg IVPUSH ONETIME PRN PRN Reason: Nausea/Vomiting Prenat Multivit/Brand Representative/Iron/Folic Ac ( Plus Iron) 1 each PO DAILY N[place]EL Sodium Chloride (Saline Flush) 10 ml FLUSH ASDIRECTED PRN PRN Reason: Keep Vein Open *Q Meaningful Use (DIS) - VTE *Q VTE Criteria *Q: - Stroke *Q Stroke Criteria *Q: - AMI *Q AMI Criteria *Q:
[2016-07-06] MEDS: Ibuprofen 600 MG Tab PO PRN (08:47)
[2016-07-06] MEDS: Witch Hazel Medicated Pads 100/Jar TOP PRN (11:03)
[2016-07-06] MEDS: Benzocaine/Menthol 20%-0.5% Spray 56 GM Canister TOP PRN (11:03)
== END 2016-07-06 11:43 | disposition home or self-care (01) | DRG 542 ==
LOC: JD.OB 22:12 → JD.OBCHECK 22:12 → JD.OB 23:01 → OBSVTOIN 07-04 17:22 → JD.OB 07-04 17:22
PROVIDERS: ADMIT Obstetrics & Gynecology; ATTEND Obstetrics & Gynecology
PROC: 10E0XZZ Delivery of Products of Conception, External Approach (ICD-10-PCS; principal; 2016-07-04)
PROC: 0DQR0ZZ Repair Anal Sphincter, Open Approach (ICD-10-PCS; 2016-07-04)
PROC: 10907ZC Drainage of Amniotic Fluid, Therapeutic from Products of Conception, Via Natural or Artificial Opening (ICD-10-PCS; 2016-07-04)
PROC: 00HU33Z Insertion of Infusion Device into Spinal Canal, Percutaneous Approach (ICD-10-PCS; 2016-07-04)
PROC: 3E0R3CZ (ICD-10-PCS; 2016-07-04)
DX: O99.824 Streptococcus B carrier state complicating childbirth (principal); O77.0 Labor and delivery complicated by meconium in amniotic fluid; O70.20 Third degree perineal laceration during delivery, unspecified; Z3A.41 41 weeks gestation of pregnancy; Z37.0 Single live birth
CPT/HCPCS: 01967; 36415; 85025; 85027; 86850; 86900; 86901; A9270-GY; J2540; J2590; J3010; J7030; J7120